=== PATIENT | male | born 1995 | race Caucasian/White ===

== ENCOUNTER 2016-04-19 08:59 | Emergency (ER) | payer OTHER ==
--- NOTE | ~2016-04-19 | EKG ---
PATIENT: EDDIE BARNES UNIT #: [id number] Ventricular Rate: 136 BPM Atrial Rate: 136 BPM P-R Interval: 128 ms QRS Duration: 78 ms Q-T Interval: 302 ms QTC Calculation(Bezet): 454 ms P [place]: 68 degrees Calculated R [place]: 18 degrees Calculated T [place]: 41 degrees Diagnosis Line: Sinus tachycardia Diagnosis Line: Otherwise normal ECG Diagnosis Line: No previous ECGs available Diagnosis Line: Confirmed by ROE VALDES MD ([id number]) on Diagnosis Line: 04/19/2016 11:28:42 AM INTERPRETING MD: KEISHA HANCOCK
--- NOTE | ~2016-04-19 | CR63 ---
[facility] A Service of [facility] & [facility] RADIOLOGY TEXT RESULTS PATIENT: EDDIE BARNES LOCATION: [facility] : [birth year] UNIT #: [id number] AGE: [address]: Vesna Stokes SEX: M ORDER DR: [id number] [facility] [address] [place], [place] [address] [id number] E MR#: [id number] Acc #: [id number] NAME: EDDIE BARNES : 1995 SEX: M STUDY DATE/TIME: 04/19/2016 10:11 UNIT: [facility] ROOM: STUDY DESCRIPTION: CR Chest 2 View Attending Physician: Vesna Stokes Pa-C Ordering Physician: Vesna Stokes Pa-C Primary Care Physician: Moriah Finney M.D. MEDICAL IMAGING REPORT This report is preliminary unless electronic signature is present EXAM Chest, 04/19/2016, [facility]. HISTORY 20-year-old male with a history of chest pain, short of air, seizures, headache, history of smoking. COMPARISON None FINDINGS 3 chest views are provided. This includes 2 lateral projections. Cardiac size and configuration are normal. Hilar structures and mediastinal contours are preserved. Bilateral lungs are expanded and clear. IMPRESSION Negative chest. Dictated by... Satya Urbina M.D. THIS IS AN ELECTRONICALLY VERIFIED REPORT Satya Urbina M.D. at 04/19/2016 3:45 PM BIENVENIDO/jac TD: 04/19/2016 14:51 JOB #: [id number] MEDICAL IMAGING REPORT COPY
[~2016-04-19 08:59] MED LIST: ABILIFY PO; BACITRACIN30 GM TOP; CIPRODEX OTIC7.5 ML OT; CONCERTA PO; MOBIC PO; NAPROXEN PO; NO MEDICATIONS; TRILEPTAL PO; VYVANCE; ZITHROMAX PO; [UNRECOGNIZED DRUG - REMARK]
[2016-04-19 09:43] LABS: POC - CKMB 2.4 ng/mL (0.0-7.9); POC - TROPONIN <0.05 ng/mL (<=0.05)
[2016-04-19 09:44] LABS: BASOPHIL# 0.1 X10e3 (0-0.3); BASOPHIL% 0.4 % (0-2.5); EOSINOPHIL% 0.2 % (0.0-7.0); HEMATOCRIT 46.2 % (38.0-50.0); HEMOGLOBIN 15.6 gm/dL (13.0-16.0); LYMPHOCYTE# 2.3 X10e3 (1.0-3.5); LYMPHOCYTE% 14.4 % (17.0-45.0); MEAN CELL VOLUME 88.8 FL (83-96); MEAN CORPUSCULAR HEMOGLOBIN 30.1 PG (28-34); MEAN CORPUSCULAR HGB CONC 33.9 g/dL (30-36); MEAN PLATELET VOLUME 8.1 FL (6.5-11.5); MONOCYTE# 1.2 X10e3 (0-1.0); MONOCYTE% 7.4 % (3.0-12.0); NEUTROPHIL# 12.5 X10e3 (1.5-7.1); NEUTROPHIL% 77.6 % (40-75); PLATELET COUNT 274 X10e3 (140-420); RED CELL DISTRIBUTION WIDTH 13.6 % (11.0-15.5); WHITE BLOOD COUNT 16.2 X10e3 (4.0-10.5)
[2016-04-19 09:46] LABS: DIFF IND YES
[2016-04-19 10:03] LABS: ALBUMIN SERUM 4.9 g/dL (3.5-5.0); ALKALINE PHOSPHATASE 64 U/L (32-92); ALT (SGPT) 59 U/L (10-40); AST (SGOT) 40 U/L (10-42); BILIRUBIN, DIRECT 0.2 mg/dL (0.0-0.2); BILIRUBIN,INDIRECT 0.9 mg/dL (0.0-0.9); BILIRUBIN,TOTAL 1.1 mg/dL (0.2-2.0); BLOOD UREA NITROGEN 14 mg/dL (9-23); CALCIUM SERUM 9.6 mg/dL (8.4-10.2); CARBON DIOXIDE 24 mmol/L (22-31); CHLORIDE 103 mmol/L (100-111); CREATININE SERUM 0.8 mg/dL (0.6-1.4); GLOM FILT RATE Estimated ABOVE60 mL/min (>60); GLUCOSE FASTING 104 mg/dL (70-110); POTASSIUM 3.6 mmol/L (3.5-5.1); PROTEIN TOTAL SERUM 8.1 g/dL (6.0-8.3); SODIUM 139 mmol/L (135-145)
[2016-04-19 10:05] LABS: ALCOHOL BLOOD <5 mg/dL (0)
[2016-04-19 10:35] LABS: PLATELET ESTIMATE NORMAL (NORMAL)
[2016-04-19 10:36] LABS: RBC NORMAL YES
[2016-04-19 10:55] LABS: URINE SOURCE CLEAN CATCH
[2016-04-19 11:02] LABS: URINE APPEARANCE CLEAR; URINE BILIRUBIN NEG (NEG); URINE BLOOD NEG (NEG); URINE COLOR YELLOW; URINE GLUCOSE NORM (NORM); URINE KETONE 2+ (NEG); URINE LEUKOCYTE ESTERASE NEG (NEG); URINE NITRATE NEG (NEG); URINE PROTEIN 1+ (NEG); URINE SPECIFIC GRAVITY 1.025 (1.003-1.035); URINE UROBILINOGEN NORM (NORM)
[2016-04-19 11:14] LABS: URBCS1 AUWI 0-2 /[HPF] (0-2); URINE BACTERIA AUWI NEG (NEGATIVE); URINE SQUAMOUS EPITHELIAL CELL NONE SEEN /[HPF]; UWBCS1 AUWI 0-2 (0-5)
[2016-04-19 11:17] LABS: CULTURE INDICATED? NO
[2016-04-19 11:21] LABS: AMPHETAMINE POS (NEG); BARBITURATES NEG (NEG); BENZODIAZEPINES NEG (NEG); COCAINE NEG (NEG); MARIJUANA POS (NEG); OPIATES NEG (NEG); TRICYCLIC ANTIDEPRESSANTS NEG (NEG); U METHADONE NEG (NEG)
== END 2016-04-19 15:25 | disposition home or self-care (01) ==
LOC: CED 08:59
PROVIDERS: Physician Assistant Medical
DX: F19.10 Other psychoactive substance abuse, uncomplicated (principal); F20.0 Paranoid schizophrenia; B19.20 Unspecified viral hepatitis C without hepatic coma; G47.30 Sleep apnea, unspecified; F17.210 Nicotine dependence, cigarettes, uncomplicated; Z88.0 Allergy status to penicillin
CPT/HCPCS: 36415; 51701; 71020; 80048; 80076; 80307; 81003; 82553; 84484; 85025; 93005; 96360; 99284; G0480